=== PATIENT | female | born 1990 | race Caucasian/White ===

== ENCOUNTER 2018-11-08 07:00 | Inpatient (IN) | payer OTHER, SELFPAY ==
[2018-11-08] VITALS (43 sets, daily range): BP systolic 92–143; BP diastolic 53–91
[~2018-11-08] VITALS: Ht 182.9 cm; Wt 103.6 kg
[2018-11-08] MEDS ORDERED: PRENTAB9 PO (07:46)
[2018-11-08] MEDS: PENICILLIN G POTASSIUM IV 5 MU in D5W MINI-BAG PLUS 100 ML IV STA ×2 (07:59→08:51)
[2018-11-08] MEDS ORDERED: LACTATED RINGER'S 1000 ML IV STA (07:59)
--- NOTE | 2018-11-08 08:26 | HPEPDOC ---
Obstetrical History & Physical General Date of Admission 11/08/2018 History of Present Illness Louisa is a 28yo with SIUP at 38w6d by 6wk u/s who presents today for large gush of fluid. She notes she heard a "pop", then had a large amount of clear fluid los, around 0600 this morning. She put a pad on and continued to soak the pad. Feels occasional ctx, not too strong yet. No vaginal bleeding, feels good movement. No f/c/n/v/CP/SOB. Chief Complaint: LOF, term Information Provided By: Patient Care Care: Good Care Dating Final EDC: Nov 16, 2018 Final EDC by: 1st trimester (US) Antepartum Course Diagnos(e)s Overweight (BMI 26.6) with excessive weight gain (37 pounds), elevated 1hr glucola with normal 3hr GTT Height (inches): 70 Pre- weight (lbs.): 188 Admission Weight (lbs.): 225 Change in Weight (lbs.): 37 Past Medical History Past Obstetrical History : Past Obstetrical History: [employer] History: No pertinent history Past Medical History Medical History chronic UTIs Surgical History: Other (hernia repair age 4) Family History Significant Family History: No pertinent family hx Social History Marital Status: Family situation: Spouse/partner home Psychosocial History: No pertinent psych hx * Smoker: non-smoker Alcohol: Denies Drugs: denies Imunizations Tdap status: current Influenza Status: current Allergies Coded Allergies: No Known Allergies (Verified Allergy, Unknown, 11/08/18) Medications Scheduled Multivitamins/ ( 27-0.8 mg) 1 Tab Tab, 1 TAB PO DAILY Physical Examination Physical Examination GENERAL: Alert and oriented times three. ABDOMEN: Gravid and non-tender to touch. FETUS: Is vertex (VTX) by sterile vaginal examination (SVE) EXTREMITIES: No edema. Vital Signs/I&O Vital Signs Date Time Temp Pulse Resp B/P (MAP) Pulse Ox O2 Delivery O2 Flow Rate FiO2 11/08/18 07:39 98.5 109 18 132/82 (99) Pertinent Laboratoy Data Blood Type: A+ RBC Antibody Screen: Negative HIV: Negative Hepatitis B: Negative Hepatitis C: Unknown Rapid Plasma Reagin: Nonreactive Rubella: Immune Varicella: Immune Chlamydia/Gonorrhea: Negative Group B Streptococcus: Positive Quad Screen Test: Negative ([id number] wnl) Cystic Fibrosis: Negative Glucose Tolerance Test: 183 (80/177/168/56) Anatomy Ultrasound Ultrasound Date: Sep 04, 2018 Placenta Location: Anterior Normal Anatomy: Yes Placenta Previa: No Steroid Therapy Steroid Therapy: No Vaginal Examination Dilation: 4 cm Effacement: 70% Station: -2 Cervical Consistency: Soft Cervical Position: Posterior Presentation: Cephalic presentation Assessment Heart Rate (FHR): 140 Variability: Moderate Accelerations: Positive Decelerations: None Tocometer Contractions: Yes Frequency: every 3-7 min. Duration: greater than 60 seconds Strength: palpated as mild Assessment/Plan Assessment Louisa is a 28yo with SIUP at 38w6d by 6wk u/s admitted to L&D for PROM, clear, 0600 today. Cat I FHRT, vitals wnl, benign exam. GBS positive. SCE 4/75/- 2, ctx irregular and not yet painful. Grossly ruptured. course significant for: Overweight (BMI 26.6) with excessive weight gain (37 pounds), elevated 1hr glucola with normal 3hr GTT Plan Admit and orient. 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 Diet: clear liquids Group B Streptococcus (GBS) positive, PCN per protocol Labs and intravenous (IV) per unit protocol. Counseled on Pitocin and augmentation of labor (IOL). Lactated Ringers (LR): Bolus 1000 mL, then at 125 mL/hr. Anticipate normal spontaneous delivery () Candidate for epidural if desired MD Golden Scott Katrina D MD Nov 08, 2018 08:18
[2018-11-08] MEDS ORDERED: BUTORPHANOL 2 MG/ML INJ (J0595) IV ONE (08:30)
[2018-11-08] MEDS ORDERED: OXYTOCIN DRIP 30 UNITS in APPROPRIATE DILUENT 1 EA IV SCH (08:30)
[2018-11-08] MEDS: LR 1,000 ML IV SCH ×2 (08:51→11:23)
[2018-11-08 09:13] LABS: HEMATOCRIT 40.2 % (36.0-47.0); HEMOGLOBIN 13.6 g/dl (12.0-15.5); MEAN CORPUSCULAR HEMOGLOBIN 30.2 pg (27.0-33.0); MEAN CORPUSCULAR HGB CONC 33.8 g/dl (32.0-36.5); MEAN CORPUSCULAR VOLUME 89.3 fl (80.0-96.0); PLATELET COUNT, AUTOMATED 150 10^3/uL (150-450); WHITE BLOOD COUNT 8.4 10^3/uL (4.0-10.0)
[2018-11-08] MEDS: PENICILLIN G POTASSIUM IV 2.5 MU in APPROPRIATE DILUENT 1 EA IV SCH ×3 (13:00→21:18)
--- NOTE | 2018-11-08 14:36 | IPNPDOC ---
Text Note Date of Service The patient was seen on 11/08/18. NOTE Intrapartum Note Patient is much more uncomfortable now, hoping for pain medication- unsure of stadol vs epidural. Vitals wnl, afebrile SCE /-1 Cat I FHRT w/+accels, -decels, mod bi [place]: ctx q2-4min Discussed stadol vs. epidural, patient would like epidural Will continue pitocin per protocol Safe to proceed Dr. Dania Franks MD VS,Pavel, I+O VS, Pavel, I+O Laboratory Tests 11/08/18 08:50 Red Blood Count 4.50, Mean Corpuscular Volume 89.3, Mean Corpuscular Hemoglobin 30.2, Mean Corpuscular Hemoglobin Concent 33.8, Red Cell Distribution Width 14.1 Vital Signs Date Time Temp Pulse Resp B/P (MAP) Pulse Ox O2 Delivery O2 Flow Rate FiO2 11/08/18 07:39 98.5 109 18 132/82 (99) Dania Franks MD Nov 08, 2018 14:36
[2018-11-08] MEDS ORDERED: FENTANYL 2MCG/ML ROPIVACAINE 0.2% IN 0.9% NACL 100ML IVBAG As Ordered ONE (14:48)
[2018-11-08] MEDS ORDERED: NALOXONE INJ 0.4 MG/1 ML VIAL (J2310) IV PRN (18:00)
[2018-11-08] MEDS ORDERED: FENTANYL/ROPIVACAINE/NACL BAG 100 ML EPIDURAL SCH (18:00)
[2018-11-08] MEDS ORDERED: ONDANSETRON 4MG/2ML VIAL (J2405) IV PRN (18:00)
[2018-11-08] MEDS ORDERED: diphenhydrAMINE INJ 50MG/ML VIAL (J1200) IV PRN (18:00)
[2018-11-08] MEDS ORDERED: EPIDURAL/PCA KEYS XX PRN (18:00)
[2018-11-08] MEDS ORDERED: ePHEDrine SULFATE 25 MG/5 ML(5MG/ML) SYRINGE IV PRN (18:00)
[2018-11-08] MEDS ORDERED: EPIDURAL COMMENT XX SCH (18:00)
[2018-11-08] MEDS ORDERED: REFRIGERATOR IV KEYS XX PRN (18:00)
[2018-11-08] MEDS ORDERED: LACTATED RINGER'S 1000 ML IV PRN (18:00)
[2018-11-09] MEDS ORDERED: OXYTOCIN DRIP 30 UNITS in APPROPRIATE DILUENT 1 EA IV SCH ×2
[2018-11-09] MEDS ORDERED: RHOGAM 300 MCG (1500 IU) INJ (J2790) IM SCH
[2018-11-09] MEDS ORDERED: METHYLERGONOVINE MALEATE 0.2 MG/ML VIAL (J2210) IM ONE
[2018-11-09] MEDS ORDERED: ACETAMINOPHEN 500 MG TAB PO PRN
[2018-11-09] MEDS ORDERED: MEASLES,MUMPS,RUBELLA VACCINE INJ (MMR-II) (90707) SC SCH
[2018-11-09] MEDS ORDERED: DIBUCAINE 1% OINTMENT 30GM TOP PRN
[2018-11-09] MEDS ORDERED: miSOPROStol 200 MCG TAB (S0191) PR ONE
[2018-11-09] MEDS ORDERED: DOCUSATE SODIUM 100 MG CAP PO PRN
--- NOTE | 2018-11-09 00:07 | DNPDOC ---
[facility] Delivery Note Delivery Note DATE OF DELIVERY: 11/08/2018 PREDELIVERY DIAGNOSIS: 38w6d SROM POST DELIVERY DIAGNOSIS: Delivered. PROCEDURE: Spontaneous vaginal delivery FRONT WINDOW CASHIER: Dr. Dania Franks MD ANESTHESIA: epidural ESTIMATED BLOOD LOSS: 350 mL. FINDINGS: 9 pound 7 ounce (4280g) female infant, Score 8/9, nuchal cord times 1. DELIVERY SUMMARY: Louisa is a 28yo [id number] s/p uncomplicated at 38w6d after presenting with SROM, delivering at 2324 on 11/08/18. She presented at 4cm grossly ruptured and with pitocin augmentation she progressed to C/C/0 at which point she began pushing. Great maternal effort, head delivered OA, restituted JG, one snug nuchal cord delivered reduced. Left anterior shoulder delivered easily followed by posterior shoulder and corpus. vigorous with spontaneous cry, placed on maternal abdomen, nose and mouth suctioned with bulb suction, apgars 8/9. Cord clamped x2 and cut by FOB, infant then taken to the warmer. Uterine massage performed, traction on the umbilical cord, placenta delivered spontaneously and intact with 3 vessel centrally inserted cord (trailing membranes teased out with ring forceps). IV pitocin was given per protocol, bimanual massage performed and uterus then firm at u-2cm. Needed to retrieve clot twice from the JASMIN with good uterine massage secondary to atony- 0.2mg m ethergine IM given. Inspection of perineum and vagina revealed a 1mll and bilateral labial abrasions repaired with 3-0 vicryl in routine fashion with hemostasis noted and excellent cosmesis. 800mcg cytotec placed rectally for prophylaxis against future bleeding. Mom and were doing well when I left the room. MD Golden Scott Katrina D MD Nov 09, 2018 00:07
[2018-11-09 02:42] VITALS: BP 138/80
[2018-11-09] MEDS: IBUPROFEN 800 MG TAB PO PRN ×2 (02:47→17:57)
[2018-11-09 06:07] VITALS: BP 116/62
[2018-11-09] MEDS: PRENATAL VITAMINS CHEWABLE TABLET PO SCH (10:52)
[2018-11-09] MEDS ORDERED: miSOPROStol 200 MCG TAB (S0191) As Ordered ONE (13:32)
[2018-11-09 18:00] VITALS: BP 116/60
[2018-11-10] MEDS: IBUPROFEN 800 MG TAB PO PRN ×2 (01:35→16:53)
[2018-11-10] MEDS ORDERED: METHYLERGONOVINE MALEATE 0.2 MG/ML VIAL (J2210) As Ordered ONE (05:34)
[2018-11-10 06:00] VITALS: BP 117/72
--- NOTE | 2018-11-10 07:06 | IPNPDOC ---
Text Note Date of Service The patient was seen on 11/10/18. NOTE PPD2 States feeling well, pain controlled with prescribed meds. Baby bonding and feeding well. No heavy VB. Lochia slowing. Ambulatory. Tolerating PO without issues. Voiding spont. No CP/LP/SOB. VSSAF NAD A&O LE no C/C/E Ut at U-2, firm a/p: Doing well. Cont routine care. D/C likely tomorrow AM (48 hrs tonight at almost midnight, if baby is discharged this afternoon, will arrange d/c as well). Sessions VS,Pavel, I+O VSPavel, I+O Vital Signs Date Time Temp Pulse Resp B/P (MAP) Pulse Ox O2 Delivery O2 Flow Rate FiO2 11/10/18 06:00 97.0 78 17 117/72 (87) SESSIONS,MEREDITH Johnson MD Nov 10, 2018 07:06
[2018-11-10] MEDS: PRENATAL VITAMINS CHEWABLE TABLET PO SCH (08:12)
[2018-11-10 18:15] VITALS: BP 124/71
[2018-11-11] MEDS: IBUPROFEN 800 MG TAB PO PRN (05:08)
[2018-11-11 06:00] VITALS: BP 131/73
--- NOTE | 2018-11-11 06:57 | DS.PDOC ---
Discharge Summary General Date of Admission Nov 08, 2018 at 08:11 Date of Discharge November 11, 2018 Discharge Summary HOSPITAL COURSE: Ms. Valles is a 28 yo G1 now P1 who underwent an uncomplicated just before midnight on [id number] after being admitted for active labor. Her course has been unremarkable. On her day of discharge she met all appropriate discharge criteria. She was ambulating, voiding, tolerating a regular diet, had minimal lochia, and her pain was well controlled. She desires an IUD for contraception in the future. DISCHARGE MEDICATIONS: Please see below. ALLERGIES: Please see below. PHYSICAL EXAMINATION ON DISCHARGE: VITAL SIGNS: Please see below. GENERAL: AAOX3, sitting up in bed, NAD ABDOMINAL EXAMINATION: Fundus firm at U-2. No fundal tenderness EXTREMITIES: No edema PSYCHIATRIC EXAMINATION: Affect appropriate LABORATORY DATA: Please see below. ACTIVITY: Pelvic rest for 6 weeks DIET: Regular DISCHARGE PLAN: discharge home on [id number] DISPOSITION: Discharge home. DISCHARGE INSTRUCTIONS: 1. Pelvic rest for 6 weeks. ITEMS TO FOLLOWUP ON ON OUTPATIENT: 1. appointment in 6-8 weeks. DISCHARGE CONDITION: Stable. TIME SPENT ON DISCHARGE: Greater than 20 minutes. Benjamin Scott DO Vital Signs/I&Os Vital Signs Date Time Temp Pulse Resp B/P (MAP) Pulse Ox O2 Delivery O2 Flow Rate FiO2 11/11/18 06:00 98.5 82 18 131/73 (92) Discharge Medications Scheduled Multivitamins/ ( 27-0.8 mg) 1 Tab Tab, 1 TAB PO DAILY, (Reported) Allergies Coded Allergies: No Known Allergies (Verified Allergy, Unknown, 11/08/18) BENJAMIN SCOTT DO Nov 11, 2018 06:57
[2018-11-11] MEDS ORDERED: NUPE1OIN2 TOP (08:34)
[2018-11-11] MEDS ORDERED: MAPA500T2 PO (08:34)
[2018-11-11] MEDS ORDERED: COLA100C5 PO (08:34)
[2018-11-11] MEDS ORDERED: IBUP-1114 PO (08:34)
[2018-11-11] MEDS: PRENATAL VITAMINS CHEWABLE TABLET PO SCH (09:14)
== END 2018-11-11 12:00 | disposition home or self-care (01) | DRG 806 ==
LOC: M LDO 07:00 → M LDI 08:11 → M OBS 11-09 02:06
PROVIDERS: ADMIT Obstetrics & Gynecology; ATTEND Obstetrics & Gynecology
PROC: 10E0XZZ Delivery of Products of Conception, External Approach (ICD-10-PCS; principal; 2018-11-08)
DX: O26.03 Excessive weight gain in pregnancy, third trimester (principal); O72.1 Other immediate postpartum hemorrhage; Z37.0 Single live birth; Z3A.38 38 weeks gestation of pregnancy; O99.820 Streptococcus B carrier state complicating pregnancy; O73.1 Retained portions of placenta and membranes, without hemorrhage; O69.82X0 Labor and delivery complicated by other cord entanglement, without compression, not applicable or unspecified